=== PATIENT | female | born 1965 | race Caucasian/White ===

== ENCOUNTER 2016-08-01 05:54 | Observation (INO) | payer OTHER ==
--- NOTE | 2016-08-01 06:15 | PDOC ---
History of Present Illness - General Stated Complaint: CHEST PAIN Time Seen by Provider: 08/01/16 06:02 History Source: Patient, Significant Other Exam Limitations: No Limitations - History of Present Illness Initial Comments: 08/01/16 06:10 50yo Female patient w/ no significant PmHx/family hx presents to ED c/o chest pains. Patient states chest pain woke her up out of her sleep around 4 am this morning. She reports pain to left shoulder radiating up left neck. Associated sweating. Denies n/v/d, back pain, abd pain, dysuria, diff breathing, rash, or any other complaints at this time. LNMP: 1 Month ago. Presenting Symptoms: Chest Pain Severity/Quality: reports: mild, sharp Location: reports: substernal Chest Pain Radiation: reports: neck, shoulders Activities at Onset: reports: sleep Prior Chest Pain/Cardiac Workup: reports: No prior chest pain, No prior cardiac workup Past History - Travel Traveled outside of the country in the last 30 days: No Close contact w/someone who was outside of country & ill: No - Past Medical History Allergies/Adverse Reactions: Allergies Allergy/AdvReac Type Severity Reaction Status Date / Time Penicillins Allergy Rash Verified 06/20/15 13:45 Home Medications: Ambulatory Orders No Home Medications 0 dose .ROUTE UTDICT 09/19/13 Ibuprofen [Motrin -] 400 mg PO QID PRN #30 tablet 06/20/15 Oseltamivir Phosphate [Tamiflu -] 75 mg PO BID #10 capsule 06/20/15 Anemia: No Asthma: Yes Cancer: No Cardiac Disorders: No Hx Myocardial Infarction: No CVA: No - Immunization History Td Vaccination: Yes Immunization Up to Date: Yes - Psycho/Social/Smoking Cessation Hx Anxiety: No Suicidal Ideation: No Smoking Status: No Smoking History: Never smoked Have you smoked in the past 12 months: No Number of Cigarettes Smoked Daily: 0 Hx Alcohol Use: No Drug/Substance Use Hx: No Substance Use Type: None Cardiac Specific PMH - Complaint Specific PMHX Abdominal Aortic Aneurysm: No Angina: No Cardiac Arrhythmia: No Cardiac Stent: No GERD: No Myocardial Infarction: No Pacemaker: No Pulmonary Embolus: No Valvular Heart Disease: No Peripheral Vascular Disease: No Review of Systems - Review of Systems Able to Perform ROS?: Yes Is the patient limited Macedonian proficient: No Constitutional: No: Chills, Fever Respiratory: No: Cough, Shortness of Breath, Stridor, Wheezing, Hemoptysis Cardiac (ROS): Yes: Chest Pain. No: Edema, Irregular Heart Rate, Lightheadedness, Palpitations, Syncope, Chest Tightness ABD/GI: No: Constipated, Diarrhea, Nausea, Poor Appetite, Poor Fluid Intake, Rectal Bleeding, Vomiting : No: Burning, Dysuria, Frequency, Flank Pain, Hematuria, Pain, Urgency Musculoskeletal: Yes: Joint Pain (Shoulder pain- Left). No: Back Pain Integumentary: Yes: Sweating. No: Erythema, Flushing, Rash Neurological: No: Headache, Numbness, Paresthesia, Seizure, Tingling, Tremors, Weakness, Ataxia All Other Systems: Reviewed and Negative *Physical Exam - Physical Exam General Appearance: Yes: Nourished, Appropriately Dressed. No: Apparent Distress, Mild Distress, Moderate Distress, Severe Distress Neck: positive: Trachea midline, Normal Thyroid, Supple. negative: Rigid, Stridor, Lymphadenopathy (R), Lymphadenopathy (L) Respiratory/Chest: positive: Lungs Clear, Normal Breath Sounds. negative: Chest Tender, Respiratory Distress, Accessory Muscle Use, Labored Respiration, Rapid RR, Stridor, Wheezing Cardiovascular: positive: Regular Rhythm, Regular Rate. negative: Edema, JVD, Murmur Gastrointestinal/Abdominal: positive: Normal Bowel Sounds, Soft. negative: Tender, Increased Bowel Sounds, Distended, Guarding, Rebound, Tenderness Musculoskeletal: positive: Normal Inspection. negative: CVA Tenderness, Vertebral Tenderness Extremity: positive: Normal Capillary Refill, Normal Inspection, Normal Range of Motion. negative: Tender, Delayed Capillary Refill Integumentary: positive: Normal Color, Dry, Warm. 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
[2016-08-01 06:22] VITALS: BMI 26.4
[2016-08-01 06:38] LABS: BASOPHIL 0.2 % (0-2.0); EOSINOPHIL 1.3 % (0-4.5); MCH 30.8 pg (25.7-33.7); MCHC 34.2 g/dl (32.0-36.0); MEAN CELL VOLUME 90.1 fl (80-96); NEUTROPHILS 66.2 % (42.8-82.8); PLATELET COUNT 165 K/MM3 (134-434); RDW 13.4 % (11.6-15.6)
[2016-08-01 06:56] LABS: URINE APPEARANCE SLCLOUDY; URINE BILIRUBIN NEGATIVE (NEGATIVE); URINE COLOR LTYELLOW; URINE GLUCOSE (UA) NEGATIVE (NEGATIVE); URINE KETONE NEGATIVE (NEGATIVE); URINE NITRITE NEGATIVE (NEGATIVE); URINE PROTEIN NEGATIVE (NEGATIVE); URINE UROBILINOGEN NEGATIVE E.U./dl (0.2-1.0)
[2016-08-01 07:00] LABS: URINE BLOOD 1+ (NEGATIVE); URINE LEUK ESTERASE 2+ (NEGATIVE)
[2016-08-01 07:05] LABS: ALBUMIN 3.2 g/dl (3.4-5.0); ALK PHOS 90 U/L (45-117); ANION GAP 9 (8-16); BILIRUBIN,TOTAL 0.3 mg/dL (0.2-1.0); CO2 26 mmol/L (21-32); CREATININE 0.7 mg/dL (0.55-1.02); GLUCOSE,RANDOM 171 mg/dL (74-106); SGOT/AST 9 U/L (15-37); SGPT/ALT 15 U/L (12-78); TOT PROT 6.3 g/dl (6.4-8.2)
[2016-08-01 07:07] LABS: TROPONIN I < 0.02 ng/ml (0.00-0.05)
[2016-08-01 07:10] LABS: URINE MUCUS RARE; URINE RBC 1 /hpf (0-3); URINE WBC 4 /hpf (3-5)
--- NOTE | 2016-08-01 07:23 | PDOC ---
*Physical Exam - Vital Signs Last Vital Signs Temp Pulse Resp BP Pulse Ox 97.7 F 75 19 125/73 100 08/01/16 06:18 08/01/16 06:18 08/01/16 06:18 08/01/16 06:18 08/01/16 06:35 ED Treatment Course - LABORATORY CBC & Chemistry Diagram: 08/01/16 06:12 08/01/16 06:12 - ADDITIONAL ORDERS Additional order review: Laboratory Results 08/01/16 08/01/16 06:12 06:12 Sodium 141 Potassium 3.9 Chloride 106 Carbon Dioxide 26 Anion Gap 9 BUN 17 D Creatinine 0.7 Creat Clearance w eGFR > 60 Random Glucose 171 H D Calcium 8.0 L Total Bilirubin 0.3 D AST 9 L D ALT 15 Alkaline Phosphatase 90 D Creatine Kinase 61 Troponin I < 0.02 Total Protein 6.3 L Albumin 3.2 L Urine Color Ltyellow Urine Appearance Slcloudy Urine pH 5.0 Ur Specific [place] 1.029 Urine Protein Negative Urine Glucose (UA) Negative Urine Ketones Negative Urine Blood 1+ H Urine Nitrite Negative Urine Bilirubin Negative Urine Urobilinogen Negative Ur Leukocyte Esterase 2+ H Urine RBC 1 Urine WBC 4 Ur Epithelial Cells Moderate Urine Mucus Rare Urine HCG, Qual Negative 08/01/16 06:12 RBC 4.09 MCV 90.1 MCHC 34.2 RDW 13.4 MPV 9.0 Neutrophils % 66.2 D Lymphocytes % 22.6 D Monocytes % 9.7 Eosinophils % 1.3 D Basophils % 0.2 Medical Decision Making - Medical Decision Making 08/01/16 07:23 Signout received from AMANDO Brambila. Briefly, this is a healthy 50 year old female with no family history of CAD who presents complaining of chest pain that woke her from sleep at 4am. She reports associated shortness of breath and diaphoresis. Initial workup overnight was notable for: -EKG: NSR at 65bpm, no ST or T wave changes -CXR: Cardiomegaly. Lucent vs. cystic change distal right clavicle. -TNI neg x 1 - UA with 3+ leukesterase- will send culture Patient re-evaluated and still has chest pain. ASA 324mg given. Will place in observation for HONEY. PCP is [facility]. *DC/Admit/Observation/Transfer Diagnosis at time of Disposition: Chest pain Qualifiers: Chest pain type: other chest pain Qualified Code(s): R07.89 - Other chest pain ; R07.8 - Other chest pain - Discharge Dispostion Condition at time of disposition: Guarded Admit: Yes
[2016-08-01] MEDS ORDERED: ASPIRIN 81 MG CHEWABLE TABLETS PO ONE (08:36)
[2016-08-01] MEDS ORDERED: ASPIRIN 81 MG CHEWABLE TABLETS ONE (08:39)
[2016-08-01] MEDS ORDERED: ONDANSETRON 4 MG/2 ML VIAL IVPB PRN (10:15)
--- NOTE | 2016-08-01 10:19 | HP ---
PCP: [facility] CHIEF COMPLAINT: Chest pain HISTORY OF PRESENT ILLNESS: This is a 50-year-old woman who presents to the ER complaining of chest pain. She was awakened at 4 am with a sharp pain in the middle of her chest, radiating to her left shoulder. She also had epigastric pain, nausea, and sweats. She denies shortness of breath, cough, fever, chills, vomiting, melena, rectal bleeding, diarrhea, constipation. She took Tylenol without relief and her drove her to the ER. She reports having frequent heartburn. She has not been having chest pain with exertion. She has not been having abdominal pain or nausea after meals. PAST MEDICAL HISTORY Denies PAST SURGICAL HISTORY Tubal ligation Allergies Penicillins Allergy (Verified 08/01/16 06:25) Rash HOME MEDICATIONS 3 Medication Instructions Recorded No Home Medications 0 dose .ROUTE UTDICT 09/19/13 Social History: Smoking: Never smoked Alcohol: Denies Drugs: Denies Recent Travel: No Family History: Denies REVIEW OF SYSTEMS CONSTITUTIONAL: Present: diaphoresis. Absent: fever, chills, generalized weakness, malaise, loss of appetite, weight change HEENT: Absent: rhinorrhea, nasal congestion, throat pain, throat swelling, difficulty swallowing, mouth swelling, ear pain, eye pain, visual changes CARDIOVASCULAR: Present: chest pain. Absent: syncope, palpitations, lightheadedness, peripheral edema RESPIRATORY: Absent: cough, shortness of breath, dyspnea with exertion, orthopnea, wheezing, stridor, hemoptysis GASTROINTESTINAL: Present: epigastric pain, nausea. Absent: abdominal distension, vomiting, diarrhea, constipation, melena, hematochezia GENITOURINARY: Absent: dysuria, frequency, urgency, hesitancy, hematuria, flank pain, genital pain MUSCULOSKELETAL: Absent: myalgia, arthralgia, joint swelling, back pain, neck pain SKIN: Absent: rash, itching, pallor HEMATOLOGIC/IMMUNOLOGIC: Absent: easy bleeding, easy bruising, lymphadenopathy, frequent infections ENDOCRINE: Absent: unexplained weight gain, unexplained weight loss, heat intolerance, cold intolerance NEUROLOGIC: Absent: headache, focal weakness, paresthesias, dizziness, unsteady gait, seizure, mental status changes, bladder or bowel incontinence PSYCHIATRIC: Absent: anxiety, depression, suicidal or homicidal ideation, hallucinations. PHYSICAL EXAMINATION Vital Signs Period Temp Pulse Resp BP Sys/Novoa Pulse Ox Last 24 Hr 97.7 F 75 19 125/73 100-100 GENERAL: Awake, alert, and fully oriented, in no acute distress. HEAD: Normal with no signs of trauma. EYES: Pupils equal, round and reactive to light, extraocular movements intact, sclerae anicteric, conjunctivae clear. EARS, NOSE, THROAT: Ears normal, nares patent, oropharynx clear without exudates. Moist mucous membranes. NECK: Normal range of motion, supple without lymphadenopathy, JVD, or masses. LUNGS: Breath sounds equal, clear to auscultation bilaterally. No wheezes, and no crackles. No accessory muscle use. HEART: Regular rate and rhythm, normal S1 and S2 without murmur, rub or gallop. ABDOMEN: Soft, (+) epigastric tenderness, not distended, normoactive bowel sounds, no guarding, no rebound, no masses. No hepatomegaly or splenomegaly. MUSCULOSKELETAL: Normal range of motion at all joints. No bony deformities or tenderness. No CVA tenderness. UPPER EXTREMITIES: 2+ pulses, warm, well-perfused. No cyanosis. No clubbing. No peripheral edema. LOWER EXTREMITIES: 2+ pulses, warm, well-perfused. No calf tenderness. No peripheral edema. NEUROLOGICAL: Cranial nerves II-XII intact. Normal speech. Gait not observed. PSYCHIATRIC: Cooperative. Good eye contact. Appropriate mood and affect. SKIN: Warm, dry, normal turgor, no rashes or lesions noted, normal capillary refill. Laboratory Tests 08/01/16 08/01/16 08/01/16 06:12 06:12 06:12 WBC 7.0 RBC 4.09 Hgb 12.6 Hct 36.9 MCV 90.1 MCHC 34.2 RDW 13.4 Plt Count 165 D MPV 9.0 Neutrophils % 66.2 D Lymphocytes % 22.6 D Monocytes % 9.7 Eosinophils % 1.3 D Basophils % 0.2 Sodium 141 Potassium 3.9 Chloride 106 Carbon Dioxide 26 Anion Gap 9 BUN 17 D Creatinine 0.7 Creat Clearance w eGFR > 60 Random Glucose 171 H D Calcium 8.0 L Total Bilirubin 0.3 D AST 9 L D ALT 15 Alkaline Phosphatase 90 D Creatine Kinase 61 Troponin I < 0.02 B-Natriuretic Peptide 56.90 Total Protein 6.3 L Albumin 3.2 L TSH 3.10 Urine Color Ltyellow Urine Appearance Slcloudy Urine pH 5.0 Ur Specific [place] 1.029 Urine Protein Negative Urine Glucose (UA) Negative Urine Ketones Negative Urine Blood 1+ H Urine Nitrite Negative Urine Bilirubin Negative Urine Urobilinogen Negative Ur Leukocyte Esterase 2+ H Urine RBC 1 Urine WBC 4 Ur Epithelial Cells Moderate Urine Mucus Rare Urine HCG, Qual Negative Chest x-ray: Cardiomegaly. Lucent/cystic change distal right clavicle. EKG: Sinus rhythm, rate 65. No ischemic changes. ASSESSMENT/PLAN: This is a 50-year-old woman with no significant past medical history who came to the ER after being awakened by chest pain with nausea and sweats. She is being placed in observation now for further evaluation of an emergent condition. 1. Chest pain, epigastric pain, nausea and diaphoresis - Unlikely to be cardiac - Possible GERD, biliary colic - Place in observation on telemetry - Serial troponins - Echocardiogram - RUQ US - Aspirin, Protonix
[2016-08-01] MEDS: ACETAMINOPHEN 325 MG TABLET (FP) PO PRN ×2 (12:28→23:36)
[2016-08-01] MEDS: PANTOPRAZOLE 40 MG TABLET (FP) PO SCH (12:29)
--- NOTE | 2016-08-01 12:36 | EKG ---
Test Reason : Blood Pressure : / mmHG Vent. Rate : 065 BPM Atrial Rate : 065 BPM P-R Int : 152 ms QRS Dur : 080 ms QT Int : 404 ms P-R-T Axes : 064 050 036 degrees QTc Int : 420 ms NORMAL SINUS RHYTHM NORMAL ECG WHEN COMPARED WITH ECG OF 05-JUN-2011 23:12, NO SIGNIFICANT CHANGE WAS FOUND Confirmed by HOMA CARTER MD ([id number]) on 08/01/2016 12:36:08 PM Referred By: Confirmed By:HOMA CARTER MD
--- NOTE | 2016-08-02 08:55 | CON.CARD ---
Consult Consult Specialty:: cardiology Reason for Consultation:: chest pain - History of Present Illness Chief Complaint: Pt is presently asymptomatic. History of Present Illness: 50yo Female patient with PMHx headaches, fibroid uterus, "borderline" DM, presents to ED c/o chest pains. Patient states chest pain woke her up out of her sleep around 4 am this morning; moderately intense pain (sharp, pulsating but also tightness) lasting hours, radiating to left shoulder radiating up left neck with intense left-sided headche with mild left-sided weakness. Associated sweating. Denies n/v/d, back pain, abd pain, dysuria, diff breathing, rash, or any other complaints at this time. LNMP: 1 Month ago. Pt denies prior hx of chest discomfort. 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) Reproductive: Yes: Fibroids Psych: No: Anxiety, Depression - Alcohol/Substance Use Hx Alcohol Use: No - Smoking History Smoking history: Never smoked Have you smoked in the past 12 months: No Aproximately how many cigarettes per day: 0 - Social History Usual Living Arrangement: With Spouse Home Medications - Allergies Allergies/Adverse Reactions: Allergies Allergy/AdvReac Type Severity Reaction Status Date / Time Penicillins Allergy Rash Verified 08/01/16 06:25 - Home Medications Home Medications: Ambulatory Orders No Home Medications 0 dose .ROUTE UTDICT 09/19/13 Family Disease History - Family Disease History Family History: Denies Review of Systems - Review of Systems Constitutional: reports: No Symptoms Eyes: reports: No Symptoms HENT: reports: No Symptoms Neck: reports: No Symptoms Cardiovascular: reports: No Symptoms Respiratory: reports: No Symptoms Gastrointestinal: reports: No Symptoms - Risk Factors Known Risk Factors: Yes: Diabetes Mellitus, Other ("borderline" DM) Vital Signs: Vital Signs Temperature 98.6 F 08/02/16 06:00 Pulse Rate 62 08/02/16 06:00 Respiratory Rate 20 08/02/16 06:00 Blood Pressure 100/60 08/02/16 06:00 O2 Sat by Pulse Oximetry (%) 100 08/02/16 04:00 Constitutional: Yes: Calm Eyes: Yes: WNL HENT: Yes: WNL Neck: Yes: WNL Respiratory: Yes: WNL Gastrointestinal: Yes: WNL Renal/: Yes: WNL - Other Data Labs, Other Data: Troponin, BNP 08/01/16 08/01/16 12:55 17:15 Troponin I < 0.02 < 0.02 Troponin, BNP 08/01/16 08/01/16 12:55 17:15 Troponin I < 0.02 < 0.02 Imaging - Results Chest X-ray: Image Reviewed (enlarged heart; no acute pathology; ? cyst on left) EKG: Image Reviewed (normal study) Problem List - Problems (1) Chest pain Assessment/Plan: atypical presentation (quality variously described by pt as sharp, pulsating, tight; lasting hours); hx palpitations. Elevated fasting glucose; await HGBA1c; hx "borderline" DM. Await lipid levels; TSH WNL. Relatively sedentary; has gained weight. Will order stress treadmill for symptom/HR/rhythm response to exertion. Code(s): R07.9 - CHEST PAIN, UNSPECIFIED Qualifiers: Chest pain type: other chest pain Qualified Code(s): R07.89 - Other chest pain; R07.8 - Other chest pain (2) Headache Code(s): R51 - HEADACHE (3) Hyperglycemia Assessment/Plan: await HGBA1c. Code(s): R73.9 - HYPERGLYCEMIA, UNSPECIFIED
[2016-08-02 09:12] LABS: BASOPHIL 0.2 % (0-2.0); EOSINOPHIL 1.5 % (0-4.5); MCH 30.4 pg (25.7-33.7); MCHC 33.6 g/dl (32.0-36.0); MEAN CELL VOLUME 90.4 fl (80-96); MEAN PLT VOLUME 9.1 fl (7.5-11.1); NEUTROPHILS 66.6 % (42.8-82.8); PLATELET COUNT 162 K/MM3 (134-434); RDW 13.3 % (11.6-15.6); WHITE BLOOD COUNT 5.4 K/mm3 (4.0-10.0)
[2016-08-02 09:56] LABS: ALBUMIN 3.2 g/dl (3.4-5.0); ALK PHOS 79 U/L (45-117); ANION GAP 8 (8-16); BILIRUBIN,TOTAL 0.5 mg/dL (0.2-1.0); CALCIUM 8.1 mg/dL (8.5-10.1); CHOLESTEROL 136 mg/dL (50-200); CO2 26 mmol/L (21-32); CREATININE 0.6 mg/dL (0.55-1.02); GLUCOSE,RANDOM 197 mg/dL (74-106); LDL CHOLESTEROL (ONLY SJRH) 78 mg/dL (5-100); SGOT/AST 9 U/L (15-37); SGPT/ALT 16 U/L (12-78); TOT PROT 6.4 g/dl (6.4-8.2)
[2016-08-02] MEDS ORDERED: ASPIRIN 81 MG CHEWABLE TABLETS PO SCH (10:00)
[2016-08-02] MEDS: PANTOPRAZOLE 40 MG TABLET (FP) PO SCH (10:27)
--- NOTE | 2016-08-02 12:01 | DS ---
Physical Exam: SUBJECTIVE: Patient seen and examined. She denies chest pain or shortness of breath during exam. OBJECTIVE: patient was ambulating in room, steady gait Denies chest pain, palpitations or shortness of breath Spoke to patient about elevated blood sugars and she states that she has been told by her primary physician that she is a boderline diabetic. Refusing to start any medications during her stay here, but will follow up with PCP. Vital Signs Period Temp Pulse Resp BP Sys/Novoa Pulse Ox Last 24 Hr 97.8 F-98.8 F 61-70 18-20 100-130/57-71 100-100 PHYSICAL EXAM GENERAL: The patient is awake, alert, and fully oriented, in no acute distress. HEAD: Normal with no signs of trauma. EYES: PERRL, extraocular movements intact, sclera anicteric, conjunctiva clear. ENT: Ears normal, nares patent, oropharynx clear without exudates, moist mucous membranes. NECK: Trachea midline, full range of motion, supple. LUNGS: Breath sounds equal, clear to auscultation bilaterally, no wheezes, no crackles, no accessory muscle use. HEART: Regular rate and rhythm ABDOMEN: Soft, nontender, nondistended, normoactive bowel sounds, no guarding, no rebound, no hepatosplenomegaly, no masses. EXTREMITIES: 2+ pulses, warm, well-perfused, no edema. NEUROLOGICAL: Normal speech, steady gait PSYCH: Normal mood, normal affect. SKIN: Warm, dry, normal turgor, no rashes or lesions noted. LABS Laboratory Results - last 24 hr 08/01/16 08/01/16 08/02/16 12:55 17:15 08:43 WBC 5.4 RBC 4.32 Hgb 13.1 Hct 39.0 MCV 90.4 MCHC 33.6 RDW 13.3 Plt Count 162 MPV 9.1 Neutrophils % 66.6 Lymphocytes % 25.4 Monocytes % 6.3 Eosinophils % 1.5 Basophils % 0.2 Sodium Potassium Chloride Carbon Dioxide Anion Gap BUN Creatinine Creat Clearance w eGFR Random Glucose Calcium Total Bilirubin AST ALT Alkaline Phosphatase Troponin I < 0.02 < 0.02 Total Protein Albumin Triglycerides Cholesterol Total LDL Cholesterol HDL Cholesterol 08/02/16 08:43 WBC RBC Hgb Hct MCV MCHC RDW Plt Count MPV Neutrophils % Lymphocytes % Monocytes % Eosinophils % Basophils % Sodium 139 Potassium 4.1 Chloride 105 Carbon Dioxide 26 Anion Gap 8 BUN 13 D Creatinine 0.6 Creat Clearance w eGFR > 60 Random Glucose 197 H Calcium 8.1 L Total Bilirubin 0.5 D AST 9 L ALT 16 Alkaline Phosphatase 79 Troponin I Total Protein 6.4 Albumin 3.2 L Triglycerides 73 Cholesterol 136 Total LDL Cholesterol 78 HDL Cholesterol 48 HOSPITAL COURSE: Date of Admission:08/01/16 Date of Discharge: 08/02/16 Patient is a 50 year old female with a past medical history of boderline diabetes. She is no medications currently. She presented to the ER with complaints of chest pain that woke her up. The chest pain radiated to her left shoulder and neck. During today's exam, she denies chest pain or shortness of breath. She states that she has been told by her PCP that she should control her diabetes with diet but she states she has not. She will follow up with per PCP and follow up. Imagin08/02/2016 stress test - no arrhythmias, negative stress test appropriate BP, fair tolerance to exercise, no significant ECG changes 08/01/2016 Chest Xray - large heart, clear lungs 08/01/2016 ultrasound, 2 mobile gallstones notes Cardiology: Chest pain - resolved Assessment/Plan: Troponins negative x 3 Stress test negative Echo: 08/01/2016 mild MR, mild tricuspid regurg, RV systolic pressure elevated 30 -40mmhg no pericardial effusion EKG 08/01/2016 NSR 65 Lipid panel reviewed Endocrine: Hyperglycemia - likely chronic Assessment/Plan: serum glucose elevated HmgA1c: 5.7 Patient refusing to start medications for hyperglycemia, states she will follow with PCP Was told by PCP that she is pre-diabetic GI: Cholelithiasis - shown on ultrasound, likely chronic Assessment/Plan: Ultrasound shows 2 mobile gallstones present measuring up to 7mm - no gallbladder thickening pt to follow up as outpatient with Dr. Acosta for possible surgical options vs med management Disposition: Discharge home with PCP follow up. Full Code. Minutes to complete discharge: 45 Discharge Summary Reason For Visit: CHEST PAIN Current Active Problems Chest pain (Acute) Hyperglycemia (Acute) - Instructions Diet, Activity, Other Instructions: new prescriptions: Protonix 40mg daily Aspirin 81mg daily Please follow up with your PCP within 3 days after your discharge for elevated blood sugars as we discussed. Your physician may want you on medications to help control your blood sugar. You also have two gallstones (calculos biliares) that showed up in the ultrasound of your gallbladder. Please follow up with your primary care physician and Dr. Acosta. Please make an appointment with Dr Acosta to manage the gallstones. [facility] [address] [phone] Referrals: Hussain Acosta MD [Staff Physician] - Lida Cooney MD [Primary Care Provider] - Disposition: HOME - Home Medications Comprehensive Discharge Medication List: Ambulatory Orders No Home Medications 0 dose .ROUTE UTDICT 09/19/13 This patient is new to me today: Yes Date on this admission: 08/02/16 Emergency Visit: Yes ED Registration Date: 08/01/16 Care time: The patient presented to the Emergency Department on the above date and was hospitalized for further evaluation of their emergent condition. Critical Care patient: No - Discharge Referral Referred to [facility] Med P.C.: No
--- NOTE | 2016-08-02 13:22 | TRE ---
Protocol Name : GORDO Max Work Load (METS*10) : 112 Time In Exercise Phase : 00:09:44 Max. Systolic BP : 150 mmHg Max Diastolic BP : 70 mmHg Max Heart Rate : 176 BPM Max Predicted Heart Rate : 171 BPM Attending Physician : DR. CARTER Reason For Termination : Target Heart Rate Achieved Reason for Test : CHEST PAIN, HYPERGLYCEMIA Stress Protocol : GORDO Rest HR : 77 BPM PeakEx METs : 11.2 METS Arrhythmias : No Arrhythmias Resting ECG : Normal Recovery ECG Response (OLD) : Overall Impression : Normal stress test Chest Pain : No Chest Pain HR Response To Exercise : Reached Target HR BP Response To Exercise : Normal Resting BP with Appropriate Response Functional Capacity : Normal Diagnosis : 1. Negative stress test 2. Appropriate blood pressure response 3. Fair exercise tolerance and capacity 4. No significant ECG abnormalities are seen Confirmed by HOMA CARTER MD ([id number]) on 08/02/2016 1:22:30 PM
[2016-08-02 15:19] VITALS: BP 121/68; PULSE 84; TEMP 98.6
== END 2016-08-02 15:30 | disposition home or self-care (01) ==
LOC: JER 05:54 → JERBED 09:30 → J4W 12:14
PROVIDERS: ADMIT Internal Medicine; ATTEND Nurse Practitioner Family
DX: R07.89 Other chest pain (principal); K80.80 Other cholelithiasis without obstruction; R73.9 Hyperglycemia, unspecified; J45.909 Unspecified asthma, uncomplicated; D25.9 Leiomyoma of uterus, unspecified
CPT/HCPCS: 36415; 71020-TC; 76705-TC; 80053; 80061; 81003; 81015; 82550; 83036; 83721; 83880; 84443; 84484; 84703; 85025; 87086; 93005; 93010; 93017; 93018; 93306-TC; 99284-25; G0378

== ENCOUNTER 2017-01-18 13:50 | Emergency (ER) | payer OTHER ==
[2017-01-18 13:55] VITALS: BP 134/55; PULSE 70; TEMP 98.2; BMI 25.4
[2017-01-18] MEDS ORDERED: KETOROLAC TROMETHAMINE 60 MG/2 ML VIAL IM ONE (14:17)
[2017-01-18] MEDS ORDERED: KETOROLAC TROMETHAMINE 60 MG/2 ML VIAL ONE (14:22)
--- NOTE | 2017-01-18 15:10 | PDOC ---
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 started x 2 days ago; no direct trauma reported Occurred: reports: yesterday Severity: reports: moderate Pain Location: reports: lower extremity (rihjt knee) Past History - Past Medical History Allergies/Adverse Reactions: Allergies Allergy/AdvReac Type Severity Reaction Status Date / Time Penicillins Allergy Rash Verified 01/18/17 13:55 Home Medications: Ambulatory Orders Ibuprofen [Motrin -] 600 mg PO TID 01/18/17 Anemia: No Asthma: Yes Cancer: No Cardiac Disorders: No CVA: No - Immunization History Td Vaccination: Yes Immunization Up to Date: Yes - Psycho/Social/Smoking Cessation Hx Anxiety: No Suicidal Ideation: No Smoking Status: No Smoking History: Never smoked Have you smoked in the past 12 months: No Number of Cigarettes Smoked Daily: 0 Hx Alcohol Use: No Drug/Substance Use Hx: No Substance Use Type: None Review of Systems - Review of Systems Constitutional: No: Chills, Fever HEENTM: No: Symptoms Reported ABD/GI: No: Symptoms Reported Musculoskeletal: Yes: Joint Pain (right knee anterior aspect). No: Gout Integumentary: No: Erythema, Lesions *Physical Exam - Vital Signs Last Vital Signs Temp Pulse Resp BP Pulse Ox 98.2 F 70 20 134/55 100 01/18/17 13:53 01/18/17 13:53 01/18/17 13:53 01/18/17 13:53 01/18/17 13:53 - Physical Exam General Appearance: Yes: Appropriately Dressed. No: Apparent Distress Neck: positive: Supple. negative: Tender, Rigid, Tender midline Respiratory/Chest: positive: Lungs Clear Musculoskeletal: positive: Other (mild STS anterior knee; not hot to touch, pain at full extension and at flexion > 75; no skin redness/ lesions) ED Treatment Course - LABORATORY CBC & Chemistry Diagram: 01/18/17 14:27 - RADIOLOGY Radiology Studies Ordered: Category Date Time Status KNEE 3 POS-RIGHT [RAD] Stat Radiology 01/18/17 14:18 Taken - Medications Given in the ED: ED Medications Discontinued Medications Generic Name Dose Route Start Last Admin Trade Name Freq PRN Reason Stop Dose Admin Ketorolac Tromethamine 60 mg 01/18/17 14:17 01/18/17 14:51 Toradol Injection - IM 01/18/17 14:18 60 mg ONCE ONE Administration Medical Decision Making - Medical Decision Making 01/18/17 15:28 xrays= negative; labs = wnl; feeling better post toradol *DC/Admit/Observation/Transfer Diagnosis at time of Disposition: Left knee pain Qualifiers: Chronicity: acute Qualified Code(s): M25.562 - Pain in left knee - Discharge Dispostion Disposition: HOME Condition at time of disposition: Stable Admit: No - Referrals Referrals: Jenny Lake [Primary Care Provider] - Javy Hayden MD [Staff Physician] - - Patient Instructions Additional Instructions: follow up with Dr Hayden as needed; advil 400mg 3 times daily - Post Discharge Activity Work/School Note: Back to Work
[2017-01-18 15:13] LABS: BASOPHIL 0.2 % (0-2.0); EOSINOPHIL 0.8 % (0-4.5); MCH 31.5 pg (25.7-33.7); MCHC 34.9 g/dl (32.0-36.0); MEAN CELL VOLUME 90.4 fl (80-96); MEAN PLT VOLUME 8.9 fl (7.5-11.1); NEUTROPHILS 69.9 % (42.8-82.8); PLATELET COUNT 186 K/MM3 (134-434); RDW 13.6 % (11.6-15.6); WHITE BLOOD COUNT 7.7 K/mm3 (4.0-10.0)
== END 2017-01-18 15:33 | disposition home or self-care (01) ==
LOC: JERFT 13:50
PROC: 3E0233Z Introduction of Anti-inflammatory into Muscle, Percutaneous Approach (ICD-10-PCS; principal; 2017-01-18)
DX: M25.562 Pain in left knee (principal)
CPT/HCPCS: 36415; 73562-TC-RT; 84550; 85025; 86618; 96372; 99281-25

== ENCOUNTER 2020-03-19 18:23 | Emergency (ER) | payer OTHER ==
[2020-03-19 18:31] VITALS: BP 135/66; PULSE 68; TEMP 98; BMI 25.4
[2020-03-19] MEDS ORDERED: SODIUM CHLORIDE 1,000 ML IV STA (19:00)
[2020-03-19] MEDS ORDERED: ACETAMINOPHEN 1000 MG/100 ML VIAL (NON FORMULARY) IVPB ONE (19:00)
[2020-03-19] MEDS ORDERED: ACETAMINOPHEN INJECTION 100 ML IVPB ONE (19:38)
[2020-03-19 20:23] LABS: CALCIUM 8.3 mg/dL (8.5-10.1)
[2020-03-19 20:24] LABS: ALBUMIN 3.8 g/dl (3.4-5.0)
[2020-03-19 20:25] LABS: BASO % 0.3 % (0-2.0); EOS % 0.5 % (0-4.5); HEMATOCRIT 38.6 % (32.4-45.2); HEMOGLOBIN 13.5 GM/dL (10.7-15.3); LYMPH % 20.1 % (8-40); MCH 32.2 pg (25.7-33.7); MCHC 35.1 g/dl (32.0-36.0); MEAN CELL VOLUME 91.6 fl (80-96); MEAN PLT VOLUME 9.5 fl (7.5-11.1); MONO % 8.9 % (3.8-10.2); NEUT % 70.2 % (42.8-82.8); PLATELET COUNT 188 K/MM3 (134-434); RBC 4.21 M/mm3 (3.60-5.2); RDW 12.9 % (11.6-15.6); WHITE BLOOD COUNT 8.8 K/mm3 (4.0-10.0)
[2020-03-19 20:27] LABS: CREATININE 0.7 mg/dL (0.55-1.3)
[2020-03-19 20:28] LABS: BILIRUBIN,TOTAL 0.3 mg/dL (0.2-1); TOT PROT 7.2 g/dl (6.4-8.2)
== END 2020-03-19 23:04 | disposition home or self-care (01) ==
LOC: JER 18:23
PROC: 3E0333Z Introduction of Anti-inflammatory into Peripheral Vein, Percutaneous Approach (ICD-10-PCS; principal; 2020-03-19)
PROC: 3E0337Z Introduction of Electrolytic and Water Balance Substance into Peripheral Vein, Percutaneous Approach (ICD-10-PCS; 2020-03-19)
DX: M54.2 Cervicalgia (principal); M79.632 Pain in left forearm
CPT/HCPCS: 36415; 70450-TC; 71260-TC; 72125-TC; 73060-TC-LT-FY; 73090-TC-LT-FY; 74177-TC; 80053; 84703; 85025; 99285-25; J0131; Q9967

== ENCOUNTER 2021-09-16 04:42 | Day surgery (SDC) | payer OTHER ==
[2021-09-13 14:37] VITALS: BMI 26.9
[2021-09-16 11:30] VITALS: TEMP 97.5
[2021-09-16 12:00] VITALS: BP 114/62; PULSE 65
== END 2021-09-16 12:15 | disposition home or self-care (01) ==
LOC: JASU-ENDO 04:42
PROVIDERS: ATTEND Internal Medicine Gastroenterology
PROC: 0DBN8ZX Excision of Sigmoid Colon, Via Natural or Artificial Opening Endoscopic, Diagnostic (ICD-10-PCS; 2021-09-16)
PROC: 0DBK8ZX Excision of Ascending Colon, Via Natural or Artificial Opening Endoscopic, Diagnostic (ICD-10-PCS; principal; 2021-09-16 11:15)
DX: Z12.11 Encounter for screening for malignant neoplasm of colon (principal); D12.2 Benign neoplasm of ascending colon; D12.5 Benign neoplasm of sigmoid colon; I10 Essential (primary) hypertension; E11.9 Type 2 diabetes mellitus without complications
CPT/HCPCS: 81025; 88305-TC

== ENCOUNTER 2022-06-07 07:03 | Emergency (ER) | payer OTHER ==
[2022-06-07 07:54] VITALS: BP 101/65; PULSE 100; RESP 20; TEMP 99.5; BMI 25.4
[2022-06-07] MEDS ORDERED: ONDANSETRON 4 MG TABLET PO ONE ×2 (08:38→08:44)
[2022-06-07] MEDS ORDERED: FAMOTIDINE 20 MG TABLET PO ONE (08:38)
[2022-06-07] MEDS ORDERED: SUCRALFATE 1 GM TABLET (FP) PO ONE (08:38)
[2022-06-07] MEDS ORDERED: ACETAMINOPHEN 500 MG TABLET (FP) PO ONE (08:38)
[2022-06-07] MEDS ORDERED: MAG HYDROX/AL HYDROX/SIMETH 30 ML UNIT-DOSE CUP PO ONE (08:38)
[2022-06-07] MEDS ORDERED: MAG HYDROX/AL HYDROX/SIMETH 30 ML UNIT-DOSE CUP ONE (08:44)
[2022-06-07] MEDS ORDERED: FAMOTIDINE 20 MG TABLET ONE (08:44)
[2022-06-07] MEDS ORDERED: SUCRALFATE 1 GM TABLET (FP) ONE (09:22)
== END 2022-06-07 11:10 | disposition home or self-care (01) ==
LOC: JER 07:03
DX: R11.2 Nausea with vomiting, unspecified (principal); R19.7 Diarrhea, unspecified; R10.13 Epigastric pain
CPT/HCPCS: 99283-25

== ENCOUNTER 2023-03-28 04:49 | Emergency (ER) | payer OTHER ==
[2023-03-28 05:05] VITALS: RESP 18; TEMP 97.7; BMI 26.4
[2023-03-28] MEDS ORDERED: ACETAMINOPHEN 1000 MG/100 ML BAG IVPB ONE (05:24)
[2023-03-28] MEDS ORDERED: ACETAMINOPHEN INJECTION 100 ML IVPB ONE (05:43)
[2023-03-28 06:39] LABS: BASO % 0.2 % (0-2.0); EOS % 3.3 % (0-4.5); HEMOGLOBIN 13.6 GM/dL (10.7-15.3); LYMPH % 18.7 % (8-40); MCH 30.6 pg (25.7-33.7); MEAN CELL VOLUME 89.9 fl (80-96); NEUT % 66.8 % (42.8-82.8); PLATELET COUNT 270 10^3/uL (134-434); RBC 4.45 M/mm3 (3.60-5.2); RDW 13.1 % (11.6-15.6)
[2023-03-28 07:01] LABS: POTASSIUM 4.3 mmol/L (3.5-5.1)
[2023-03-28 07:04] LABS: ALBUMIN 3.5 g/dl (3.4-5.0); BLOOD UREA NITROGEN 15.6 mg/dL (7-18)
[2023-03-28 07:07] LABS: BILIRUBIN,TOTAL 0.4 mg/dL (0.2-1); CREATININE 0.8 mg/dL (0.55-1.3)
[2023-03-28 07:09] LABS: TOT PROT 6.7 g/dl (6.4-8.2)
[2023-03-28 09:31] VITALS: BP 99/64; PULSE 65
== END 2023-03-28 09:56 | disposition home or self-care (01) ==
LOC: JER 04:49
PROC: 3E033NZ Introduction of Analgesics, Hypnotics, Sedatives into Peripheral Vein, Percutaneous Approach (ICD-10-PCS; principal; 2023-03-28)
DX: R07.9 Chest pain, unspecified (principal); R20.2 Paresthesia of skin; R20.1 Hypoesthesia of skin; Z20.822 Contact with and (suspected) exposure to COVID-19
CPT/HCPCS: 0241U-QW; 36415; 71046-TC-FY; 80053; 84484; 85025; 93005; 93010; 96374; 99285-25; J0131

== ENCOUNTER 2023-09-06 04:20 | Day surgery (SDC) | payer OTHER ==
[2023-09-05 12:06] VITALS: BMI 26.4
[2023-09-06] MEDS ORDERED: PROPOFOL 20 ML ONE (13:26)
[2023-09-06] MEDS ORDERED: MIDAZOLAM HCL 2 MG/2 ML SINGLE DOSE VIAL ONE (13:26)
[2023-09-06] MEDS ORDERED: LIDOCAINE HCL/PF 2% SDV 5ML VIAL ONE (13:26)
[2023-09-06] MEDS ORDERED: FENTANYL CITRATE/PF 50 MCG/ML VIAL ONE ×3 (13:26→15:25)
[2023-09-06] MEDS ORDERED: SODIUM CHLORIDE 0.9% P/F 10 ML VIAL IJ ONE (13:27)
[2023-09-06] MEDS ORDERED: ceFAZolin SODIUM 1 GM VIAL ONE (13:27)
[2023-09-06] MEDS ORDERED: CLINDAMYCIN PHOSPHATE 600 MG/4 ML VIAL ONE (13:43)
[2023-09-06] MEDS ORDERED: ACETAMINOPHEN INJECTION 100 ML IVPB ONE (13:43)
[2023-09-06] MEDS: CLINDAMYCIN PHOSPHATE 600 MG/4 ML VIAL IVPB ONE (13:45)
[2023-09-06] MEDS ORDERED: KETOROLAC TROMETHAMINE 30 MG/1 ML VIAL ONE (13:49)
[2023-09-06] MEDS ORDERED: ONDANSETRON 4 MG/2 ML VIAL ONE (13:49)
[2023-09-06] MEDS ORDERED: DEXAMETHASONE SOD PHOSPHATE 4 MG/1 ML VIAL ONE (13:49)
[2023-09-06] MEDS ORDERED: oxyCODONE HCL 5 MG TABLET PO PRN (14:24)
[2023-09-06] MEDS ORDERED: PROMETHAZINE HCL 25 MG/1 ML VIAL IVPB PRN (14:24)
[2023-09-06] MEDS ORDERED: ONDANSETRON 4 MG/2 ML VIAL IVPUSH PRN (14:24)
[2023-09-06] MEDS ORDERED: LACTATED RINGERS SOLUTION 1,000 ML IV SCH (14:30)
[2023-09-06] MEDS ORDERED: IBUPROFEN 400 MG TABLET (FP) PO PRN (14:43)
[2023-09-06] MEDS ORDERED: ACETAMINOPHEN 325 MG TABLET (FP) PO PRN (14:43)
[2023-09-06 16:18] VITALS: RESP 18
[2023-09-06] MEDS: ONDANSETRON 4 MG TABLET PO ONE (17:30)
[2023-09-06] MEDS: ONDANSETRON *ODT* 4 MG TABLET SL ONE (17:30)
[2023-09-06 18:05] VITALS: BP 118/62; PULSE 72; TEMP 97.7
== END 2023-09-06 18:45 | disposition home or self-care (01) ==
LOC: JASU-SURG 04:20
PROVIDERS: ATTEND Obstetrics & Gynecology
PROC: 0UDB8ZZ Extraction of Endometrium, Via Natural or Artificial Opening Endoscopic (ICD-10-PCS; principal; 2023-09-06 13:30)
DX: N95.0 Postmenopausal bleeding (principal)
CPT/HCPCS: 81025; 82962; 88305-TC; 94760; J0131; Q0162

== ENCOUNTER 2024-06-25 08:31 | Emergency (ER) | payer OTHER ==
[2024-06-25 08:41] VITALS: BP 146/79; PULSE 65; RESP 18; TEMP 97.5; BMI 25.9
== END 2024-06-25 09:18 | disposition home or self-care (01) ==
LOC: JERFT 08:31
DX: L03.114 Cellulitis of left upper limb (principal); Z48.02 Encounter for removal of sutures
CPT/HCPCS: 99283-25